=== PATIENT | female | born 1935 | race Caucasian/White ===

== ENCOUNTER 2017-04-15 13:52 | Observation (INO) ==
[2017-04-15 15:51] LABS: Basophils % 0.2 %; Eosinophils # 0.2 K/mcL (0.0-0.6); Eosinophils % 2.6 %; Hematocrit 40.1 % (35.3-44.9); Immature Granulocytes % 0.5 % (0-4); Lymphocytes % 31.9 %; Mean Corpuscular HGB Conc 32.4 g/dL (31.6-35.5); Mean Corpuscular Hemoglobin 26.7 pg (28.0-33.3); Mean Corpuscular Volume 82.3 fL (83.0-100.0); Mean Platelet Volume 8.5 fL (9.4-12.4); Monocytes # 0.6 K/mcL (0.0-1.3); Monocytes % 10.3 %; Neutrophils # 3.3 K/mcL (1.6-8.9); Platelet Count 157 K/mcL (140-400); Red Blood Count 4.87 M/mcL (3.82-4.97); Red Cell Distribution Width 13.9 % (11.5-14.5); Segmented Neutrophils % 54.5 %
[2017-04-15] MEDS ORDERED: Nitroglycerin 0.4 MG TAB.SUBL SL PRN (15:57)
[2017-04-15] MEDS ORDERED: Aspirin 81 MG TAB.CHEW PO ONE (15:57)
--- NOTE | 2017-04-15 15:58 | Emergency Department Note ---
Disposition Clinical Impression: Unstable angina, Bradycardia Chest pain Qualifiers: Chest pain type: precordial pain Qualified Code(s): R07.2 - Precordial pain Hypertension Qualifiers: Hypertension type: unspecified Qualified Code(s): I10 - Essential (primary) hypertension Disposition: Admitted As Inpatient Condition: Fair Time of Disposition: 17:02 General Adult HPI - General Chief complaint: ED Arrhythmia/Palpitations Stated complaint: Dizzy/r shoulder pain Time Seen by Provider: 04/15/17 15:03 Source: patient Mode of arrival: ambulatory Limitations: no limitations Nursing Notes Reviewed: Yes Vital Signs Reviewed: Yes - History of Present Illness HPI Narrative: Patient's an 82-year-old female complains of chest pain, and lightheadedness times today. Patient states that she woke up fine without any issue. Shortly after waking up and actually getting out of bed she started having fluttering in her chest which she says happens intermittently followed by lightheadedness. Patient states she started having actual chest pain 3/10 but worsening pain in bilateral shoulders with radiation down both arms. Patient states she has a history of ME and it felt like her anginal equivalent. Patient is currently on clopidogrel and aspirin. Pain Scale: 2 - Related Data Home Medications Medication Instructions Recorded Confirmed Allopurinol [Zyloprim] 50 mg PO DAILY 05/02/15 04/15/17 Atenolol [Tenormin] 25 mg PO DAILY 05/02/15 04/15/17 Ferrous Sulfate 325 mg PO DAILY 05/02/15 04/15/17 Levothyroxine [Synthroid] 25 mcg PO 0630 05/02/15 04/15/17 Amlodipine Besylate 10 mg PO DAILY 04/15/17 04/15/17 Atorvastatin [Lipitor] 40 mg PO HS 04/15/17 04/15/17 Clopidogrel [Plavix] 75 mg PO DAILY 04/15/17 04/15/17 Ergocalciferol (VITAMIN D2) 50,000 unit PO FR 04/15/17 04/15/17 [Vitamin D2] Metformin HCl [Metformin HCl ER] 1,000 mg PO BID 04/15/17 04/15/17 Omeprazole Magnesium [Prilosec Otc] 20 mg PO DAILY 04/15/17 04/15/17 Allergies Allergy/AdvReac Type Severity Reaction Status Date / Time lisinopril AdvReac Swelling Verified 04/15/17 16:17 of Lip/Tongue/Throat Review of Systems: Patient denies fevers, chills, nausea, vomiting, diarrhea. Patient is to chronic shortness of breath patient denies room spinning but admits to intermittent vision blurriness All systems ED: reviewed and negative except as stated. Review of Systems: As Per HPI Constitutional: Denies: fever ENT ED: Denies: congestion Cardiovascular: Reports: chest pain, palpitations Gastrointestinal: Denies: abdominal pain, nausea, vomiting, diarrhea Genitourinary: Denies: urgency, dysuria Musculoskeletal: Denies: back pain Neurological: Denies: headache Endocrine: Denies: fatigue Past Medical History - Past Medical History Attestation: Yes The following information was validated with the patient. Medical history: Reports: CVA, diabetes, hyperlipidemia, myocardial infarction Psychiatric history: Reports: no psych history - Social History Smoking Status: Former smoker Smokeless Tobacco Status: No Alcohol use: Reports: none, rarely Drug use: Reports: none Physical Exam Vital Signs Temperature 97.4 F L 04/15/17 13:59 Pulse Rate 56 04/15/17 13:59 Respiratory Rate 20 04/15/17 13:59 Blood Pressure 180/59 04/15/17 13:59 O2 Sat by Pulse Oximetry 98 04/15/17 13:59 Temperature 97.4 F L 04/15/17 13:59 Pulse Rate 56 04/15/17 13:59 Respiratory Rate 20 04/15/17 13:59 Blood Pressure 180/59 04/15/17 13:59 O2 Sat by Pulse Oximetry 98 04/15/17 13:59 Oxygen Delivery Oxygen Delivery Room Air Patient's age 82-year-old female who is alert and oriented 3 and in no acute distress at this time. Patient's vitals showed that she is hypertensive at 180/ 59 and bradycardiac with a sinus bradycardia on EKG at a rate of 54 bpm. Patient has no conversational dyspnea. No focal neurologic deficits, no pronator drift, no weakness. Patient is 5/5 muscle strength upper and lower extremities. Patient has no dysdiadochokinesis. Patient able to perform maneuvers across midline by taking her right thumb placement on her left ear while eyes are closed and tongue protrusion simultaneously. Patient can also repeat exactions with the left arm. - General Limitations: no limitations General appearance: alert - Head Head exam: atraumatic, normocephalic, normal inspection - Eye Eye exam: Present: normal appearance, PERRL, EOMI - ENT ENT exam: normal exam, normal oropharynx, mucous membranes moist - Neck Neck exam: Present: normal inspection, full ROM, trachea midline - Chest Chest inspection: Present: normal inspection, symmetric chest wall rise - Respiratory Respiratory exam: Present: normal lung sounds bilaterally. Absent: respiratory distress, wheezes - Cardiovascular Cardiovascular exam: Present: bradycardia, irregular rhythm (Irregular rhythm auscultated on exam) - Abdominal Exam Abdominal exam: Present: soft, Non-Tender. Absent: tenderness, distention, guarding, rebound, rigidity - Extremities Exam Extremities exam: Present: normal inspection, full ROM, normal capillary refill. Absent: tenderness, pedal edema, joint swelling, calf tenderness - Back Exam Back exam: Present: normal inspection, full ROM, CVA tenderness (L). Absent: tenderness, CVA tenderness (R) - Neurological Exam Neurological exam: Present: alert, oriented X3 - Psychiatric Psychiatric exam: Present: normal affect, normal mood - Skin Skin exam: Present: warm, dry, intact, normal color. Absent: rash, cyanosis, diaphoresis, erythema, pallor Course Vital Signs Temperature 97.4 F L 04/15/17 13:59 Pulse Rate 56 04/15/17 13:59 Respiratory Rate 20 04/15/17 13:59 Blood Pressure 180/59 04/15/17 13:59 O2 Sat by Pulse Oximetry 98 04/15/17 13:59 Temperature 98.2 F 04/16/17 15:23 Pulse Rate 58 04/16/17 15:23 Respiratory Rate 18 04/16/17 15:23 Blood Pressure 168/58 04/16/17 15:23 O2 Sat by Pulse Oximetry 96 04/16/17 15:23 Oxygen Delivery Oxygen Delivery Room Air Medical Decision Making - [facility] Narrative Medical decision making narrative: Patient presented with symptoms of chest pain of her anginal equivalent times a day. The symptoms include chest pain with bilateral shoulder pain. Patient is concerning for ACS/ME. Also in differential PE, TIA secondary to the patient's previous history of TIAs. Patient also mentioned that she has had previous issues with her blood pressure medication causing lightheadedness and dizziness. Patient currently bradycardic and her symptoms may be medication driven as well. Patient's chest pain symptoms resolved before her administration of nitroglycerin. On reexamination patient's chest pain came back as given one dose of nitroglycerin. This resolved patient's chest pain. Patient is currently bradycardic but hypertensive. Patient's heart rates maintaining between 40s and 50s. Of Note, the family is concerned for sacral pressure ulcer that she had in the past that was very large and request that she be rotated as much as possible. Debra Pola COMPUTATIONAL MATHEMATICIAN as except the patient for admission at 1726 hrs. - Medical Records Medical records reviewed: Yes I reviewed the patient's medical records. - Lab Data Lab results reviewed: Yes I reviewed the patient's lab results. Lab results narrative: Short CBC 04/16/17 04/15/17 Range/Units 01:39 15:44 WBC 6.0 6.1 (4.3-11.1) K/mcL Hgb 11.4 L D 13.0 (11.5-15.4) g/dL Hct 34.7 L 40.1 (35.3-44.9) % Plt Count 141 157 (140-400) K/mcL Neutrophils # 3.3 (1.6-8.9) K/mcL BMP 04/16/17 04/15/17 Range/Units 01:39 15:44 Sodium 138 138 (136-145) mEq/L Potassium 4.5 4.4 (3.5-4.5) mEq/L Chloride 107 104 (98-109) mEq/L Carbon Dioxide 26 25 (19-29) mEq/L BUN 19 21 H (7-20) mg/dL Creatinine 1.16 H 1.12 H (0.57-1.11) mg/dL Glucose 189 H 137 H (70-99) mg/dL Calcium 9.1 9.7 (8.6-10.8) mg/dL Cardiac Enzymes 04/16/17 04/15/17 04/15/17 Range/Units 01:39 19:58 15:44 Troponin I 0.01 0.01 0.01 (0-0.03) ng/mL Liver Function 04/16/17 Range/Units 01:39 Total Bilirubin 0.3 (0.2-1.2) mg/dL AST 9 (5-34) Units/L ALT 7 (0-55) Units/L Alkaline Phosphatase 118 (38-126) Units/L Albumin 3.4 L (3.5-5.0) g/dL Urine 04/16/17 Range/Units 01:47 Urine Color Yellow (Yellow) Urine Clarity Clear (Clear) Urine pH 6.0 (5.0-8.0) pH Units Ur Specific [place] 1.015 (1.010-1.025) Urine Protein 100 H (Neg-Trace) mg/dL Urine Glucose (UA) Normal (Normal) mg/dL Result diagrams: 04/16/17 01:39 04/16/17 01:39 Lab Results 04/15/17 04/15/17 04/15/17 Range/Units 15:44 15:44 15:44 WBC 6.1 (4.3-11.1) K/mcL RBC 4.87 (3.82-4.97) M/mcL Hgb 13.0 (11.5-15.4) g/dL Hct 40.1 (35.3-44.9) % MCV 82.3 L (83.0-100.0) fL MCH 26.7 L (28.0-33.3) pg MCHC 32.4 (31.6-35.5) g/dL RDW 13.9 (11.5-14.5) % Plt Count 157 (140-400) K/mcL MPV 8.5 L (9.4-12.4) fL Immature Gran % 0.5 (0-4) % Seg Neutrophils % 54.5 % Lymphocytes % 31.9 % Monocytes % 10.3 % Eosinophils % 2.6 % Basophils % 0.2 % Neutrophils # 3.3 (1.6-8.9) K/mcL Lymphocytes # 2.0 (0.6-4.6) K/mcL Monocytes # 0.6 (0.0-1.3) K/mcL Eosinophils # 0.2 (0.0-0.6) K/mcL Basophils # 0.0 (0.0-0.2) K/mcL Sodium 138 (136-145) mEq/L Potassium 4.4 (3.5-4.5) mEq/L Chloride 104 (98-109) mEq/L Carbon Dioxide 25 (19-29) mEq/L BUN 21 H (7-20) mg/dL Creatinine 1.12 H (0.57-1.11) mg/dL Est GFR ( Amer) 56 L (> 60) Est GFR (Non-Af Amer) 47 L (> 60) BUN/Creatinine Ratio 19 (6-26) Glucose 137 H (70-99) mg/dL Calculated Osmolality 291 (280-300) Calcium 9.7 (8.6-10.8) mg/dL Troponin I 0.01 (0-0.03) ng/mL B-Natriuretic Peptide (0-100) pg/mL 04/15/17 Range/Units 15:46 WBC (4.3-11.1) K/mcL RBC (3.82-4.97) M/mcL Hgb (11.5-15.4) g/dL Hct (35.3-44.9) % MCV (83.0-100.0) fL MCH (28.0-33.3) pg MCHC (31.6-35.5) g/dL RDW (11.5-14.5) % Plt Count (140-400) K/mcL MPV (9.4-12.4) fL Immature Gran % (0-4) % Seg Neutrophils % % Lymphocytes % % Monocytes % % Eosinophils % % Basophils % % Neutrophils # (1.6-8.9) K/mcL Lymphocytes # (0.6-4.6) K/mcL Monocytes # (0.0-1.3) K/mcL Eosinophils # (0.0-0.6) K/mcL Basophils # (0.0-0.2) K/mcL Sodium (136-145) mEq/L Potassium (3.5-4.5) mEq/L Chloride (98-109) mEq/L Carbon Dioxide (19-29) mEq/L BUN (7-20) mg/dL Creatinine (0.57-1.11) mg/dL Est GFR ( Amer) (> 60) Est GFR (Non-Af Amer) (> 60) BUN/Creatinine Ratio (6-26) Glucose (70-99) mg/dL Calculated Osmolality (280-300) Calcium (8.6-10.8) mg/dL Troponin I (0-0.03) ng/mL B-Natriuretic Peptide 280 H (0-100) pg/mL - Radiology Data Radiology results reviewed: Yes I reviewed the patient's radiology results. Chest X-Ray 04/15/17 14:03 IMPRESSION: No acute abnormality. D/ / 04/15/2017 14:43:46 Jaime Ross MD / rosa Interpreting Provider: Jaime Ross MD Head CT 04/15/17 15:44 IMPRESSION: No acute intracranial abnormality. Diffuse atrophic changes with findings suggesting chronic microvascular ischemia D/ / Erasmo Carlson MD / Erasmo Carlson MD Interpreting Provider: Erasmo Carlson MD - EKG Data EKG #1 EKG attestation: Yes I reviewed and interpreted this EKG. EKG shows normal: sinus rhythm Rate: bradycardia When compared to previous EKG there are: no significant changes Interpretation: no acute changes Attestation Statement - Attestation Attestation: I examined this patient and my medical decision-making was reviewed with the Resident Physician, Dr. Toscano. I agree with the documented findings, disposition and treatment plan as described except to the extent set forth below. Pt is an 82 yo wf, hx ME, who presents to the ER with c/o CP and b/l shoulder pain, similar to her prior ME. Pt also c/o "fluttering" in her chest, and lightheadeness with standing. Pt is bradycardic and HTN on arrival, with 3/10 CP. I agree with the PE findings as documented. EKG shows sinus bradycardia, no ischemia. Pt received ASA, nitro, which relieved her pain. PT remained bradycardic, is on b-viraj. Labs wnl, includ trop. CXR clear. Pt agree to admission for unstable angina, symptomatic bradycardia. Accepted by hosp.
[2017-04-15] MEDS ORDERED: 0.9 % Sodium Chloride 1,000 ML IVC SCH ×2 (16:00→18:30)
[2017-04-15 16:03] LABS: Calcium 9.7 mg/dL (8.6-10.8); Potassium 4.4 mEq/L (3.5-4.5)
[2017-04-15] MEDS ORDERED: Nitroglycerin 1 INCH/GM PACKET TP ONE (17:21)
--- NOTE | 2017-04-15 18:06 | Internal Med History&Physical ---
<Zina Tiwari Stevo - Last Filed: 04/21/17 07:35> Date of Encounter: 04/21/17 Time of Encounter: 18:09 Assessment and Plan (1) CAD (coronary artery disease) Status: Acute Wendy Dias is a 82 y/o female with PMH CAD, HTN, diabetes, hypothyroidism and CKD who presented to [facility] on 04/15/2017 completed chest pain. She was placed in observation status for ACS rule out. 1. CAD: with hx stents. Follows with cardiology in [place]. Presented with chest pain that radiated to bilateral shoulders. Nitroglycerin given in ED with relief and chest pain. Last stress test approximate 4 years ago per patient. Initial troponin negative, EKG without acute ST changes. Patient refusing ASA as it causes upset stomach. Continue home Plavix, statin. Cycle troponins. Check echo. Nothing by mouth for chest test in the morning. Consult cardiology if needed. 2. HTN: per hx. BP elevated in ED. Patient has not taken home BP medications. Resume home BP medications. Monitor BP and titrate PRN. 3. CKD: per hx. follows with Dr. Harris. Cr 1.12 which is consistent with baseline. Last echo 2015 with normal EF and no evidence of systolic dysfunction. Gentle IV hydration overnight she will be nothing by mouth. Monitor repeat renal function. 4. Diabetes: per hx. Control unknown. Holding home oral hypoglycemics. SSI. Monitor blood sugar and titrate PRN. Hgb A1c pending 5. Hypothyroidism: per hx. Cont home thyroxine. TSH pending 6. DVT prophylaxis: Heparin Qualifiers: Qualified Code(s): I25.10 - Atherosclerotic heart disease of [place] coronary artery without angina pectoris (2) Hypothyroidism Status: Acute Qualifiers: Hypothyroidism type: acquired Qualified Code(s): E03.9 - Hypothyroidism, unspecified (3) CKD (chronic kidney disease) Status: Acute Qualifiers: Chronic kidney disease stage: unspecified stage Qualified Code(s): N18.9 - Chronic kidney disease, unspecified (4) Hypertension Status: Acute Qualifiers: Hypertension type: essential hypertension Qualified Code(s): I10 - Essential (primary) hypertension (5) DVT prophylaxis Status: Acute Internal Medicine - H&P: HPI Chief complaint: chest pain and dizziness Admitted From: Home Plans for Post Hospital Care: Home History of present illness: Ms. Dias is a 82 year old female with past medical history CAD with stents, hyperthyroidism, CTD, hypertension and diabetes who presented to [facility] on 2016 complaints of chest pain and dizziness. She was placed in observation status for ACS rule out. Information obtained from chart review and patient report. Patient says when she woke this morning her heart was fluttering. She laid back down and fluttering stopped however she started having chest pain that radiated to both shoulders. Describes pain as just hurts. Nothing made better and pain worsened at the day so she came to the ER. Denies chest pain on my exam, no shortness of breath. Past Med Surg Social Fam HX - Past Medical History Medical history: CVA, diabetes, hyperlipidemia, myocardial infarction Psychiatric history: no psych history - Past Surgical History Surgical History: angioplasty/stent - Social History Smoking Status: Former smoker Smokeless Tobacco Status: No Alcohol use: none, rarely Drug use: none - Family History Father Living Status: Cause of : Heart attack Hx Family Cardiac Disorders: Yes (open heart, stroke) Mother Living Status: Hx Family Cardiac Disorders: Yes (heart attack) - Additional Family History Additional family history: Reviewed and non-contributory Internal Medicine - H&P: Meds Allopurinol [Zyloprim] 50 mg PO DAILY 05/02/15 [History] Atenolol [Tenormin] 25 mg PO DAILY 05/02/15 [History] Ferrous Sulfate 325 mg PO DAILY 05/02/15 [History] Levothyroxine [Synthroid] 25 mcg PO 0630 05/02/15 [History] Amlodipine Besylate 10 mg PO DAILY 04/15/17 [History] Atorvastatin [Lipitor] 40 mg PO HS 04/15/17 [History] Clopidogrel [Plavix] 75 mg PO DAILY 04/15/17 [History] Ergocalciferol (VITAMIN D2) [Vitamin D2] 50,000 unit PO FR 04/15/17 [History] Metformin HCl [Metformin HCl ER] 1,000 mg PO BID 04/15/17 [History] Omeprazole Magnesium [Prilosec Otc] 20 mg PO DAILY 04/15/17 [History] 3 Allergy/AdvReac Type Severity Reaction Status Date / Time lisinopril AdvReac Swelling Verified 04/15/17 16:17 of Lip/Tongue/Throat All Systems PM: A 10-system review of systems was performed and is negative for pertinent findings except as documented above in the HPI. - Constitutional Constitutional: no chills, no fever(s), no night sweats - EENT Eyes: no change in vision, no discharge, no pain, no photophobia Ears: no ear discharge, no ear pain, no tinnitus Nose, mouth and throat: no dysphagia, no nasal discharge, no neck pain, no sore throat - Cardiovascular Cardiovascular ROS IM: chest pain, no diaphoresis, no dyspnea, no lightheadedness, no palpitations, no syncope - Respiratory Respiratory: no cough, no dyspnea, no wheezing, no excessive phlegm production - Gastrointestinal Gastrointestinal: no abdominal pain, no diarrhea, no hematemesis, no hematochezia, no melena, no nausea, no vomiting - Genitourinary Genitourinary: no change in urinary stream, no dysuria, no flank pain, no hematuria - Musculoskeletal Musculoskeletal ROS IM: no numbness, no tingling - Integumentary Integumentary IM: no rash, no unusual bruising - Neurological Neurological ROS: no confusion, no convulsions, no focal weakness, no numbness, no tingling, no tremor(s) - Hematologic/Lymphatic Hematologic/Lymphatic: no easy bruising - Constitutional Vitals: Temp Pulse Resp BP Pulse Ox 97.4 F L 48 18 162/66 98 04/15/17 13:59 04/15/17 17:02 04/15/17 17:02 04/15/17 17:02 04/15/17 17:02 General appearance: Present: A&O X 3, no acute distress, answers questions appropriately - Head Head exam: Present: atraumatic, normocephalic - Eye Eye exam: Present: PERRL, conjuntiva pink, sclera anicteric Pupils: Present: PERRL - Neck Neck exam general surgery: Present: supple, trachea midline. Absent: lymphadenopathy - Respiratory Respiratory exam: Present: CTAB. Absent: accessory muscle use, rales, rhonchi, wheezes - Cardiovascular Cardiovascular exam: Present: RRR, +S1, +S2. Absent: diastolic murmur, gallop, rubs, systolic murmur - GI/Abdominal GI/Abdominal exam: Present: normal bowel sounds, soft, no peritoneal signs. Absent: distended, tenderness - Extremities Exam Extremities exam: Present: warm, radial pulses palpable and symmetrical. Absent : calf tenderness, cyanotic, pedal edema - Neurological Exam Neurological exam: Present: CN II-XII intact, oriented X3, no focal deficits. Absent: pronater drift, facial droop, speech deficit - Skin Skin exam: Present: dry, intact Internal Med - H&P Results - Labs CBC & Chem 7: 04/16/17 01:39 04/16/17 01:39 <Chandler Barnett - Last Filed: 04/21/17 09:34> Date of Encounter: 04/15/17 Internal Medicine - H&P: HPI History of present illness: Ms. Dias is a 82 year old female All Systems PM: A 10-system review of systems was performed and is negative for pertinent findings except as documented above in the HPI. - Constitutional Vitals: Temp Pulse Resp BP Pulse Ox 98.2 F 58 18 168/58 96 04/16/17 15:23 04/16/17 15:23 04/16/17 15:23 04/16/17 15:23 04/16/17 15:23 Internal Med - H&P Results - Labs CBC & Chem 7: 04/16/17 01:39 04/16/17 01:39 - Impressions ITS Impressions Echocardiogram 04/15/17 18:36 Impressions: Sinus bradycardia. Heart rate was mainly in the upper 40's to low 50's during this study. Normal LV systolic function, LVEF 70%. Moderate left ventricular diastolic dysfunction. Normal right ventricular size and function. Moderately dilated left atrium. No significant valvular dysfunction. No evidence of pulmonary hypertension. Left Ventricular Wall Motion: Rest Echo Findings All wall segments showed normal motion. Findings: Study Quality * Technically adequate exam. ECG Findings * Sinus bradycardia. Heart rate was mainly in the upper 40's to low 50's during this study. Left Ventricle * Normal LV systolic function, LVEF 70%. * Normal LV chamber size and wall thickness. * Moderate left ventricular diastolic dysfunction. Right Ventricle * Normal right ventricular size and function. Left Atrium * Moderately dilated left atrium. Right Atrium * Normal right atrial size. Aorta * Normally sized aortic root. Pericardium * There is no pericardial effusion present. IVC * The IVC is not dilated. Aortic Valve * Aortic valve not well visualized. Appears trileaflet with mild-moderate sclerosis. * No aortic stenosis. * No aortic regurgitation. Mitral Valve * Mild mitral annular calcification * No mitral stenosis. * Trace mitral regurgitation. Tricuspid Valve * Normal tricuspid valve structure. * No tricuspid stenosis. * Trace tricuspid regurgitation. * No evidence of pulmonary hypertension. Pulmonic Valve * Pulmonic valve not well visualized. * No pulmonic stenosis. * No pulmonic regurgitation. - Attending Attestation Date of service 04/15/2017. I independently obtained history and examined this patient and my medical decision-making was reviewed with the nurse practitioner. I agree with the documented findings, disposition and treatment plan as described. My findings are summarized below: Patient presented to the hospital with chest pain. On exam she is in no acute distress. Heart is regular. Lungs are clear. Troponin is negative. Plan: Observation. Heart monitoring. Trend troponin. Stress test in the morning. Chandler Barnett MD
[2017-04-15] MEDS ORDERED: Naloxone 0.4 MG/ML INJ IVP PRN (18:23)
[2017-04-15] MEDS ORDERED: *HR* Dextrose 50 % in Water (Syg) 50 ML SYRINGE IVP PRN (18:25)
[2017-04-15] MEDS ORDERED: Dextrose Gel 15 GM PO PRN ×2 (18:25)
[2017-04-15] MEDS ORDERED: D5% in Water 1,000 ML IVC PRN (18:25)
[2017-04-15 20:17] LABS: Hemoglobin A1C 6.2 %
[2017-04-15] MEDS: amLODIPine 5 MG TABLET PO SCH (20:33)
[2017-04-15] MEDS ORDERED: Insulin LISPRO 300 UNITS/3 ML VIAL SQ SCH (21:00)
[2017-04-16 01:52] LABS: Hematocrit 34.7 % (35.3-44.9); Mean Corpuscular HGB Conc 32.9 g/dL (31.6-35.5); Mean Corpuscular Hemoglobin 27.1 pg (28.0-33.3); Mean Corpuscular Volume 82.4 fL (83.0-100.0); Mean Platelet Volume 8.4 fL (9.4-12.4); Platelet Count 141 K/mcL (140-400); Red Blood Count 4.21 M/mcL (3.82-4.97); Red Cell Distribution Width 13.8 % (11.5-14.5)
[2017-04-16 01:56] LABS: Hemoglobin 11.4 g/dL (11.5-15.4)
[2017-04-16 01:57] LABS: Bilirubin,Urine Negative (Negative); Blood,Urine Negative (Negative); Clarity,Urine Clear (Clear); Color,Urine Yellow (Yellow); Glucose,Urine (UA) Normal (Normal); Ketones,Urine Negative (Negative); Leukocyte Esterase,Urine Small (Negative); Nitrite,Urine Negative (Negative); Protein,Urine 100 mg/dL (Neg-Trace); Specific Gravity,Urine 1.015 (1.010-1.025); Urobilinogen,Urine Normal (Normal)
[2017-04-16 02:01] LABS: Bacteria,Urine None Seen per hpf (None-Few); Hyaline Casts,Urine None Seen per lpf (None-Few); RBC,Urine 0-3 per hpf (0-3); Squamous Epithelial Cell,Urine Many per lpf (None-Few); WBC,Urine 15-30 per hpf (0-3)
[2017-04-16 02:09] LABS: Albumin 3.4 g/dL (3.5-5.0); Bilirubin,Total 0.3 mg/dL (0.2-1.2); Calcium 9.1 mg/dL (8.6-10.8); Chol/HDL Ratio 4.1 (0-4.9); Globulin 3.4 g/dL (2.4-3.5); Potassium 4.5 mEq/L (3.5-4.5); Total Protein 6.8 g/dL (6.0-8.3)
[2017-04-16] MEDS ORDERED: Regadenoson 0.4 MG/5 ML SYRINGE IVP ONE (06:08)
[2017-04-16] MEDS ORDERED: Levothyroxine 25 MCG TABLET PO SCH (06:30)
[2017-04-16] MEDS: Insulin LISPRO 300 UNITS/3 ML VIAL SQ SCH ×2 (10:36→12:56)
[2017-04-16] MEDS: amLODIPine 5 MG TABLET PO SCH (11:51)
--- NOTE | 2017-04-16 15:28 | Electrocardiograph Report ---
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
[2017-04-16 15:29] VITALS: BP 168/58
--- NOTE | 2017-04-16 15:49 | Discharge Summary ---
Date of Encounter: 04/16/17 Time of Encounter: 11:00 - Discharge Diagnosis (1) Chest pain Priority: Primary Status: Acute Qualifiers: Chest pain type: precordial pain Qualified Code(s): R07.2 - Precordial pain - Discharge Medications Home Medications: Allopurinol [Zyloprim] 50 mg PO DAILY 05/02/15 [History] Atenolol [Tenormin] 25 mg PO DAILY 05/02/15 [History] Ferrous Sulfate 325 mg PO DAILY 05/02/15 [History] Levothyroxine [Synthroid] 25 mcg PO 0630 05/02/15 [History] Amlodipine Besylate 10 mg PO DAILY 04/15/17 [History] Atorvastatin [Lipitor] 40 mg PO HS 04/15/17 [History] Clopidogrel [Plavix] 75 mg PO DAILY 04/15/17 [History] Ergocalciferol (VITAMIN D2) [Vitamin D2] 50,000 unit PO FR 04/15/17 [History] Metformin HCl [Metformin HCl ER] 1,000 mg PO BID 04/15/17 [History] Omeprazole Magnesium [Prilosec Otc] 20 mg PO DAILY 04/15/17 [History] Allergies/Adverse Reactions: 3 Allergy/AdvReac Type Severity Reaction Status Date / Time lisinopril AdvReac Swelling Verified 04/15/17 16:17 of Lip/Tongue/Throat Procedures/tests Complete & Pending: Procedures Performed prior 72 hours Category Date Time Status NM jorden perf SPECT multi [NM] Routine Exams 04/15/17 18:37 Taken EV echocardiogram Routine Y 04/15/17 18:36 Completed SP pharm nuclear stress Routine Y 04/16/17 09:00 Completed Date of admission: 04/15/17 17:43 Primary care physician: Anna Granados - Patient Status Disposition: Home, Self-Care Condition: Fair - Discharge Instructions Follow Up With: Anna Osorio MD [Primary Care Provider] - Hospital course: Patient is an 82 year old female with past medical history significant for CAD with stents, hyperthyroidism, CTD, hypertension and diabetes who presented to [facility] on 04/15/2017 complaints of chest pain and dizziness. Patient reported waking up the morning of admission with her heart fluttering. She laid back down and fluttering stopped however she started having chest pain that radiated to both shoulders without any relieving or provoking factors. Patient was admitted to the medical floor for ACS rule out. During her hospital stay, chest x-ray showed normal lung volumes with no acute consolidation or interstitial edema. Cardiac biomarkers were negative. Echocardiogram showed bradycardia with normal LV systolic function with moderate left ventricular diastolic dysfunction without any valvular dysfunction ; all wall segments show normal motion of the left ventricle. Nuclear stress test was negative for ischemia or infarct. 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 - Time Spent with Patient Total time spent providing and/or coordinating discharge services: Less than 30 minutes - Constitutional Vitals: Temp Pulse Resp BP Pulse Ox 98.2 F 58 18 168/58 96 04/16/17 15:23 04/16/17 15:23 04/16/17 15:23 04/16/17 15:23 04/16/17 15:23 General appearance: Present: A&O X 3, no acute distress, answers questions appropriately - Cardiovascular Cardiovascular exam: Present: RRR, +S1, +S2. Absent: diastolic murmur, gallop, rubs, systolic murmur - Expanded Lower Extremities Exam Lower Leg exam: Absent: swelling
== END 2017-04-16 17:00 | disposition home or self-care (01) ==
LOC: 3BNU 13:52 → EMEROO 13:52 → SUATTDRO 17:43 → 3BNU 20:05
PROVIDERS: ADMIT Registered Nurse; ATTEND Hospitalist

== ENCOUNTER 2021-08-22 12:47 | Inpatient (IN) ==
[2021-08-22 16:12] LABS: Hematocrit 43.8 % (35.3-44.9); Hemoglobin 14.1 g/dL (11.5-15.4); Mean Corpuscular HGB Conc 32.2 g/dL (31.6-35.5); Mean Corpuscular Hemoglobin 27.8 pg (28.0-33.3); Mean Corpuscular Volume 86.4 fL (83.0-100.0); Mean Platelet Volume 8.6 fL (9.4-12.4); Platelet Count 151 K/mcL (140-400); Red Blood Count 5.07 M/mcL (3.82-4.97); Red Cell Distribution Width 14.1 % (11.5-14.5); White Blood Count 11.7 K/mcL (4.3-11.1)
[2021-08-22 16:36] LABS: Calcium 10.1 mg/dL (8.6-10.3); Potassium 3.9 mEq/L (3.5-5.1)
[2021-08-22 16:48] LABS: Lymphocytes # 0.7 K/mcL (0.6-4.6); Monocytes # 1.2 K/mcL (0.0-1.3); Neutrophils # 9.8 K/mcL (1.6-8.9)
[2021-08-22 16:49] LABS: Platelet Estimate Normal (Normal)
[2021-08-22] MEDS ORDERED: Clindamycin 600 MG/50 ML 600 MG/50 ML IV.SOLN IVPB STA (18:15)
[2021-08-22] MEDS ORDERED: Ondansetron ODT 4 MG TAB.RAPDIS SL PRN (19:42)
[2021-08-22] MEDS ORDERED: Naloxone 0.4 MG/ML INJ IVP PRN (19:42)
[2021-08-22] MEDS ORDERED: Melatonin 3 MG TABLET PO PRN (19:42)
[2021-08-22] MEDS: hydrALAZINE 25 MG TABLET PO SCH (22:38)
[2021-08-23 03:43] LABS: Basophils % 0.1 %; Eosinophils % 0.2 %; Hematocrit 39.1 % (35.3-44.9); Hemoglobin 12.7 g/dL (11.5-15.4); Immature Granulocytes % 0.3 % (0-4); Lymphocytes # 2.3 K/mcL (0.6-4.6); Lymphocytes % 21.6 %; Mean Corpuscular HGB Conc 32.5 g/dL (31.6-35.5); Mean Corpuscular Volume 86.1 fL (83.0-100.0); Mean Platelet Volume 8.6 fL (9.4-12.4); Monocytes # 1.8 K/mcL (0.0-1.3); Monocytes % 17.3 %; Neutrophils # 6.3 K/mcL (1.6-8.9); Platelet Count 141 K/mcL (140-400); Red Blood Count 4.54 M/mcL (3.82-4.97); Red Cell Distribution Width 14.2 % (11.5-14.5); Segmented Neutrophils % 60.5 %; White Blood Count 10.4 K/mcL (4.3-11.1)
[2021-08-23 04:03] LABS: Calcium 9.5 mg/dL (8.6-10.3); Potassium 3.8 mEq/L (3.5-5.1)
[2021-08-23] MEDS: Levothyroxine 25 MCG TABLET PO SCH (06:03)
[2021-08-23] MEDS ORDERED: Furosemide 20 MG TABLET PO SCH (09:00)
[2021-08-23] MEDS: allopurinoL 100 MG TABLET PO SCH (09:25)
[2021-08-23] MEDS: Loratadine 10 MG TABLET PO SCH (09:25)
[2021-08-23] MEDS: Ascorbic Acid 500 MG TABLET PO SCH (09:25)
[2021-08-23] MEDS: amLODIPine 5 MG TABLET PO SCH (09:26)
[2021-08-23] MEDS: hydrALAZINE 25 MG TABLET PO SCH ×2 (09:26→20:46)
[2021-08-23] MEDS: cefTRIAXone 1,000 MG in 0.9 % Sodium Chloride 10 ML IVP SCH (09:27)
[2021-08-23] MEDS: Budesonide/Formoterol 160/4.5 1 PUFF INH IH SCH (10:47)
[2021-08-23] MEDS: Tiotropium 10 INH DOSE IH SCH (10:49)
[2021-08-23] MEDS: Acetaminophen 325 MG TABLET PO PRN (11:17)
[2021-08-23] MEDS: *HR* Heparin 5,000 UNIT/ML VIAL SQ SCH ×2 (14:47→20:46)
[2021-08-23] MEDS: *HR* HYDROcodone/Acet 5/325 mg TABLET PO PRN (16:29)
[2021-08-24 05:07] LABS: Basophils % 0.1 %; Eosinophils % 0.3 %; Hematocrit 36.5 % (35.3-44.9); Hemoglobin 11.8 g/dL (11.5-15.4); Immature Granulocytes % 10.3 % (0-4); Lymphocytes % 26.2 %; Mean Corpuscular HGB Conc 32.3 g/dL (31.6-35.5); Mean Corpuscular Hemoglobin 28.2 pg (28.0-33.3); Mean Corpuscular Volume 87.3 fL (83.0-100.0); Mean Platelet Volume 8.9 fL (9.4-12.4); Monocytes # 1.1 K/mcL (0.0-1.3); Monocytes % 14.8 %; Neutrophils # 3.7 K/mcL (1.6-8.9); Platelet Count 146 K/mcL (140-400); Red Blood Count 4.18 M/mcL (3.82-4.97); Red Cell Distribution Width 13.9 % (11.5-14.5); Segmented Neutrophils % 48.3 %; White Blood Count 7.7 K/mcL (4.3-11.1)
[2021-08-24 05:22] LABS: Potassium 3.9 mEq/L (3.5-5.1)
[2021-08-24] MEDS: *HR* Heparin 5,000 UNIT/ML VIAL SQ SCH ×3 (06:07→20:53)
[2021-08-24] MEDS: Levothyroxine 25 MCG TABLET PO SCH (06:08)
[2021-08-24] MEDS: hydrALAZINE 25 MG TABLET PO SCH ×2 (07:52→20:53)
[2021-08-24] MEDS: *HR* HYDROcodone/Acet 5/325 mg TABLET PO PRN ×2 (07:52→17:24)
[2021-08-24] MEDS: Ascorbic Acid 500 MG TABLET PO SCH (07:52)
[2021-08-24] MEDS: allopurinoL 100 MG TABLET PO SCH (07:53)
[2021-08-24] MEDS: Loratadine 10 MG TABLET PO SCH (07:54)
[2021-08-24] MEDS: amLODIPine 5 MG TABLET PO SCH (07:54)
[2021-08-24] MEDS: cefTRIAXone 1,000 MG in 0.9 % Sodium Chloride 10 ML IVP SCH (07:55)
[2021-08-24] MEDS ORDERED: *HR* Propofol 200 MG/20 ML VIAL IVP ONE ×2 (09:04→13:00)
[2021-08-24] MEDS ORDERED: *HR* FentaNYL (PF) 100 MCG/2 ML VIAL ONE (09:04)
[2021-08-24] MEDS ORDERED: Ondansetron 4 MG/2 ML VIAL ONE (09:06)
[2021-08-24] MEDS ORDERED: Lidocaine -MPF 2% 5 ML VIAL ONE (09:06)
[2021-08-24] MEDS: Tiotropium 10 INH DOSE IH SCH (10:05)
[2021-08-24] MEDS: Budesonide/Formoterol 160/4.5 1 PUFF INH IH SCH (10:05)
[2021-08-24] MEDS ORDERED: Acetaminophen IV 1,000 MG/100 ML BAG IVPB ONE (12:00)
[2021-08-24] MEDS ORDERED: *HR* Midazolam HCl 2 MG/2 ML VIAL ONE (12:14)
[2021-08-24] MEDS ORDERED: Lidocaine/EPI 1:100k 1% 30 ML VIAL ONE (12:16)
[2021-08-24] MEDS ORDERED: Bupivacaine/EPI 1:200k 0.25% 50 ML VIAL ONE (12:16)
[2021-08-24] MEDS: Acetaminophen 325 MG TABLET PO PRN ×2 (14:28→21:44)
[2021-08-24] MEDS: 0.9 % Sodium Chloride 1,000 ML IVC SCH (20:54)
[2021-08-25 00:35] LABS: Hematocrit 34.6 % (35.3-44.9); Hemoglobin 11.4 g/dL (11.5-15.4); Mean Corpuscular HGB Conc 32.9 g/dL (31.6-35.5); Mean Corpuscular Hemoglobin 28.9 pg (28.0-33.3); Mean Corpuscular Volume 87.6 fL (83.0-100.0); Mean Platelet Volume 8.6 fL (9.4-12.4); Platelet Count 138 K/mcL (140-400); Red Blood Count 3.95 M/mcL (3.82-4.97); Red Cell Distribution Width 13.7 % (11.5-14.5); White Blood Count 6.2 K/mcL (4.3-11.1)
[2021-08-25 00:54] LABS: Calcium 8.7 mg/dL (8.6-10.3)
[2021-08-25 00:59] LABS: Eosinophils # 0.1 K/mcL (0.0-0.6); Lymphocytes # 1.5 K/mcL (0.6-4.6); Monocytes # 0.1 K/mcL (0.0-1.3); Neutrophils # 4.5 K/mcL (1.6-8.9); Platelet Estimate Normal (Normal); Reactive Lymphocytes Present (Not Present)
[2021-08-25] MEDS: *HR* HYDROcodone/Acet 5/325 mg TABLET PO PRN ×3 (02:11→19:22)
[2021-08-25] MEDS: *HR* Heparin 5,000 UNIT/ML VIAL SQ SCH (06:10)
[2021-08-25] MEDS: Levothyroxine 25 MCG TABLET PO SCH (06:11)
[2021-08-25] MEDS: 0.9 % Sodium Chloride 1,000 ML IVC SCH (07:24)
[2021-08-25] MEDS: Tiotropium 10 INH DOSE IH SCH (08:14)
[2021-08-25] MEDS: Budesonide/Formoterol 160/4.5 1 PUFF INH IH SCH (08:15)
[2021-08-25] MEDS: Loratadine 10 MG TABLET PO SCH (09:46)
[2021-08-25] MEDS: hydrALAZINE 25 MG TABLET PO SCH ×2 (09:46→22:10)
[2021-08-25] MEDS: Ascorbic Acid 500 MG TABLET PO SCH (09:46)
[2021-08-25] MEDS: amLODIPine 5 MG TABLET PO SCH (09:47)
[2021-08-25] MEDS: cefTRIAXone 1,000 MG in 0.9 % Sodium Chloride 10 ML IVP SCH (09:47)
[2021-08-26] MEDS: *HR* HYDROcodone/Acet 5/325 mg TABLET PO PRN ×2 (04:06→19:53)
[2021-08-26 04:44] LABS: Basophils % 0.2 %; Eosinophils % 0.6 %; Hematocrit 34.1 % (35.3-44.9); Hemoglobin 10.8 g/dL (11.5-15.4); Immature Granulocytes % 6.8 % (0-4); Lymphocytes # 1.6 K/mcL (0.6-4.6); Lymphocytes % 28.9 %; Mean Corpuscular HGB Conc 31.7 g/dL (31.6-35.5); Mean Corpuscular Hemoglobin 27.6 pg (28.0-33.3); Mean Platelet Volume 8.6 fL (9.4-12.4); Monocytes # 0.7 K/mcL (0.0-1.3); Monocytes % 13.2 %; Neutrophils # 2.7 K/mcL (1.6-8.9); Platelet Count 135 K/mcL (140-400); Red Blood Count 3.92 M/mcL (3.82-4.97); Red Cell Distribution Width 13.6 % (11.5-14.5); Segmented Neutrophils % 50.3 %; White Blood Count 5.4 K/mcL (4.3-11.1)
[2021-08-26 04:50] LABS: Platelet Estimate Normal (Normal)
[2021-08-26 05:08] LABS: Calcium 8.6 mg/dL (8.6-10.3); Potassium 3.9 mEq/L (3.5-5.1)
[2021-08-26] MEDS: Levothyroxine 25 MCG TABLET PO SCH (06:16)
[2021-08-26] MEDS: Tiotropium 10 INH DOSE IH SCH (08:02)
[2021-08-26] MEDS: Budesonide/Formoterol 160/4.5 1 PUFF INH IH SCH (08:02)
[2021-08-26] MEDS: amLODIPine 5 MG TABLET PO SCH (09:24)
[2021-08-26] MEDS: Ascorbic Acid 500 MG TABLET PO SCH (09:24)
[2021-08-26] MEDS: hydrALAZINE 25 MG TABLET PO SCH ×2 (09:24→19:54)
[2021-08-26] MEDS: Loratadine 10 MG TABLET PO SCH (09:24)
[2021-08-26] MEDS: cefTRIAXone 1,000 MG in 0.9 % Sodium Chloride 10 ML IVP SCH (09:24)
[2021-08-27 02:58] VITALS: TEMP 97.7
[2021-08-27] MEDS: Levothyroxine 25 MCG TABLET PO SCH (05:25)
[2021-08-27 05:44] LABS: Basophils % 0.4 %; Eosinophils % 0.6 %; Hematocrit 34.8 % (35.3-44.9); Hemoglobin 11.5 g/dL (11.5-15.4); Immature Granulocytes % 4.3 % (0-4); Lymphocytes # 1.7 K/mcL (0.6-4.6); Mean Corpuscular Hemoglobin 28.5 pg (28.0-33.3); Mean Corpuscular Volume 86.1 fL (83.0-100.0); Mean Platelet Volume 8.8 fL (9.4-12.4); Monocytes # 0.8 K/mcL (0.0-1.3); Monocytes % 14.6 %; Neutrophils # 2.6 K/mcL (1.6-8.9); Platelet Count 160 K/mcL (140-400); Red Blood Count 4.04 M/mcL (3.82-4.97); Red Cell Distribution Width 13.6 % (11.5-14.5); Segmented Neutrophils % 48.1 %; White Blood Count 5.4 K/mcL (4.3-11.1)
[2021-08-27 06:10] LABS: Calcium 9.1 mg/dL (8.6-10.3); Potassium 3.8 mEq/L (3.5-5.1)
[2021-08-27 07:23] VITALS: BP 147/70; PULSE 65
[2021-08-27] MEDS: Tiotropium 10 INH DOSE IH SCH (07:59)
[2021-08-27] MEDS: Budesonide/Formoterol 160/4.5 1 PUFF INH IH SCH (08:00)
[2021-08-27 08:01] VITALS: O2SAT 94
[2021-08-27] MEDS: *HR* HYDROcodone/Acet 5/325 mg TABLET PO PRN (09:00)
[2021-08-27] MEDS: cefTRIAXone 1,000 MG in 0.9 % Sodium Chloride 10 ML IVP SCH (09:01)
[2021-08-27] MEDS: hydrALAZINE 25 MG TABLET PO SCH (09:01)
[2021-08-27] MEDS: Loratadine 10 MG TABLET PO SCH (09:01)
[2021-08-27] MEDS: amLODIPine 5 MG TABLET PO SCH (09:01)
[2021-08-27] MEDS: Ascorbic Acid 500 MG TABLET PO SCH (09:01)
== END 2021-08-27 15:30 | disposition home health service (06) | DRG 580 ==
LOC: 4WAOSI 12:47 → EMEROOARM 12:47 → SUATTDRO 18:26 → 4WAOSI 19:30 → SUATTDRO 08-24 14:14 → 3BNU 08-25 20:09
PROVIDERS: ADMIT Internal Medicine; ATTEND Pharmacist

== ENCOUNTER 2022-04-08 13:11 | Inpatient (IN) ==
[2022-04-08 14:01] LABS: Hematocrit 41.4 % (35.3-44.9); Mean Platelet Volume 9.4 fL (9.4-12.4)
[2022-04-08 14:03] LABS: Hemoglobin 13.8 g/dL (11.5-15.4); Mean Corpuscular HGB Conc 33.3 g/dL (31.6-35.5); Mean Corpuscular Hemoglobin 28.2 pg (28.0-33.3); Mean Corpuscular Volume 84.5 fL (83.0-100.0); Platelet Count 160 K/mcL (140-400); Red Cell Distribution Width 13.4 % (11.5-14.5); White Blood Count 11.4 K/mcL (4.3-11.1)
[2022-04-08 14:06] LABS: Eosinophils # 0.1 K/mcL (0.0-0.6)
[2022-04-08 14:30] LABS: Calcium 9.6 mg/dL (8.6-10.3); Potassium 3.5 mEq/L (3.5-5.1); Troponin I 3.87 ng/mL (< 0.04)
[2022-04-08 14:32] LABS: Basophils # 0.1 K/mcL (0.0-0.2); Lymphocytes # 1.8 K/mcL (0.6-4.6); Monocytes # 0.9 K/mcL (0.0-1.3); Neutrophils # 8.4 K/mcL (1.6-8.9); Platelet Estimate Normal (Normal); Reactive Lymphocytes Present (Not Present)
[2022-04-08] MEDS ORDERED: Aspirin 325 MG TABLET PO ONE (14:32)
[2022-04-08] MEDS ORDERED: *HR* Heparin 5,000 UNIT/ML VIAL IVP ONE (14:43)
[2022-04-08] MEDS ORDERED: Heparin 25,000UNIT/250ML 1/2NS 25,000 UNIT/250 ML IV.SOLN IVC SCH (14:45)
[2022-04-08 15:15] LABS: Hematocrit 37.9 % (35.3-44.9); Hemoglobin 12.3 g/dL (11.5-15.4); Mean Corpuscular HGB Conc 32.5 g/dL (31.6-35.5); Mean Corpuscular Hemoglobin 27.7 pg (28.0-33.3); Mean Corpuscular Volume 85.4 fL (83.0-100.0); Mean Platelet Volume 9.1 fL (9.4-12.4); Platelet Count 144 K/mcL (140-400); Red Blood Count 4.44 M/mcL (3.82-4.97); Red Cell Distribution Width 13.4 % (11.5-14.5); White Blood Count 10.6 K/mcL (4.3-11.1)
[2022-04-08] MEDS ORDERED: Heparin 1,000 UNITS/500 mL 500 ML ONE (15:19)
[2022-04-08] MEDS ORDERED: 0.9 % Sodium Chloride 1,000 ML ONE (15:19)
[2022-04-08] MEDS ORDERED: Nitroglycerin 1,000 MCG/5 ML VIAL IV ONE (15:19)
[2022-04-08] MEDS ORDERED: *HR* Heparin 10,000 UNIT/10 ML VIAL ONE (15:19)
[2022-04-08] MEDS ORDERED: Iopamidol - 370 200 ML INFUS..BTL ONE (15:19)
[2022-04-08 15:24] LABS: INR 1.5; Prothrombin Time 17.2 Seconds (9.4-12.1)
[2022-04-08] MEDS ORDERED: *HR* Midazolam HCl 2 MG/2 ML VIAL ONE (15:26)
[2022-04-08] MEDS ORDERED: *HR* FentaNYL (PF) 100 MCG/2 ML VIAL ONE (15:26)
[2022-04-08 15:27] LABS: Heparin anti-factor XA UFH 1.02 IU/mL (0.30-0.70)
[2022-04-08] MEDS: Insulin LISPRO 300 UNITS/3 ML VIAL SUBQ SCH ×2 (17:27→20:13)
[2022-04-08] MEDS ORDERED: Naloxone 0.4 MG/ML INJ IVP PRN (17:38)
[2022-04-09] MEDS ORDERED: Ondansetron 4 MG/2 ML VIAL IM ONE (02:53)
[2022-04-09] MEDS ORDERED: Ondansetron 4 MG/2 ML VIAL ONE (02:55)
[2022-04-09 03:12] LABS: Hemoglobin 13.2 g/dL (11.5-15.4); Mean Corpuscular Hemoglobin 27.8 pg (28.0-33.3); Mean Corpuscular Volume 84.2 fL (83.0-100.0); Platelet Count 148 K/mcL (140-400); Red Blood Count 4.75 M/mcL (3.82-4.97); Red Cell Distribution Width 13.4 % (11.5-14.5); White Blood Count 11.7 K/mcL (4.3-11.1)
[2022-04-09 03:24] LABS: Calcium 9.1 mg/dL (8.6-10.3); Chol/HDL Ratio 4.3 (0-4.9)
[2022-04-09 03:42] LABS: Monocytes # 0.9 K/mcL (0.0-1.3)
[2022-04-09 03:43] LABS: Eosinophils # 0.2 K/mcL (0.0-0.6); Lymphocytes # 2.1 K/mcL (0.6-4.6); Neutrophils # 8.4 K/mcL (1.6-8.9); Platelet Estimate Normal (Normal)
[2022-04-09 04:56] LABS: Estimated Average Glucose 137 mg/dl; Hemoglobin A1C 6.4 %
[2022-04-09] MEDS: Insulin LISPRO 300 UNITS/3 ML VIAL SUBQ SCH ×4 (08:56→21:19)
[2022-04-09] MEDS: Aspirin 81 MG TAB.CHEW PO SCH (09:03)
[2022-04-09] MEDS ORDERED: D5% in Water 1,000 ML IVC PRN (11:45)
[2022-04-09] MEDS ORDERED: *HR* Dextrose 50 % in Water (Syg) 50 ML SYRINGE IVP PRN (11:45)
[2022-04-09] MEDS ORDERED: Dextrose Gel 15 GM/37.5 ML TUBE PO PRN ×2 (11:45)
[2022-04-09] MEDS ORDERED: Ringers Solution, Lactated 1,000 ML ONE (15:58)
[2022-04-09] MEDS: carvediloL 6.25 MG TABLET PO SCH (17:53)
[2022-04-09] MEDS: allopurinoL 100 MG TABLET PO SCH (17:54)
[2022-04-10 04:11] LABS: Hematocrit 38.2 % (35.3-44.9); Hemoglobin 12.3 g/dL (11.5-15.4); Mean Corpuscular HGB Conc 32.2 g/dL (31.6-35.5); Mean Corpuscular Hemoglobin 27.3 pg (28.0-33.3); Mean Corpuscular Volume 84.9 fL (83.0-100.0); Mean Platelet Volume 9.2 fL (9.4-12.4); Platelet Count 150 K/mcL (140-400); Red Cell Distribution Width 13.2 % (11.5-14.5); White Blood Count 11.7 K/mcL (4.3-11.1)
[2022-04-10 04:26] LABS: Albumin 3.3 g/dL (3.5-5.7); Albumin/Globulin Ratio 1.1 (1.1-2.2); Bilirubin,Total 0.7 mg/dL (0.3-1.0); Calcium 8.9 mg/dL (8.6-10.3); Globulin 3.1 g/dL (2.4-3.5); Potassium 3.6 mEq/L (3.5-5.1); Total Protein 6.4 g/dL (6.4-8.9)
[2022-04-10 05:02] LABS: Lymphocytes # 3.3 K/mcL (0.6-4.6); Monocytes # 0.9 K/mcL (0.0-1.3); Neutrophils # 7.5 K/mcL (1.6-8.9)
[2022-04-10 05:04] LABS: Platelet Estimate Normal (Normal)
[2022-04-10] MEDS: Levothyroxine 25 MCG TABLET PO SCH (06:07)
[2022-04-10] MEDS: Cholecalciferol (D-3) 1,000 UNIT (25MCG) TABLET PO SCH (08:00)
[2022-04-10] MEDS: allopurinoL 100 MG TABLET PO SCH (08:00)
[2022-04-10] MEDS: Aspirin 81 MG TAB.CHEW PO SCH (08:00)
[2022-04-10] MEDS: Furosemide 20 MG TABLET PO SCH (08:00)
[2022-04-10] MEDS: Insulin LISPRO 300 UNITS/3 ML VIAL SUBQ SCH ×4 (08:01→20:18)
[2022-04-10] MEDS: carvediloL 6.25 MG TABLET PO SCH ×2 (08:01→16:59)
[2022-04-10] MEDS ORDERED: 0.9 % Sodium Chloride 1,000 ML IVC SCH (10:30)
[2022-04-10 15:13] LABS: Calcium 8.7 mg/dL (8.6-10.3); Potassium 3.5 mEq/L (3.5-5.1)
[2022-04-11 03:55] LABS: Basophils % 0.1 %; Eosinophils # 0.1 K/mcL (0.0-0.6); Eosinophils % 0.5 %; Hematocrit 36.4 % (35.3-44.9); Hemoglobin 11.9 g/dL (11.5-15.4); Lymphocytes # 1.5 K/mcL (0.6-4.6); Lymphocytes % 13.7 %; Mean Corpuscular HGB Conc 32.7 g/dL (31.6-35.5); Mean Corpuscular Hemoglobin 27.9 pg (28.0-33.3); Mean Corpuscular Volume 85.2 fL (83.0-100.0); Monocytes # 1.9 K/mcL (0.0-1.3); Monocytes % 16.8 %; Neutrophils # 6.7 K/mcL (1.6-8.9); Platelet Count 152 K/mcL (140-400); Red Blood Count 4.27 M/mcL (3.82-4.97); Red Cell Distribution Width 13.3 % (11.5-14.5); Segmented Neutrophils % 59.9 %; White Blood Count 11.1 K/mcL (4.3-11.1)
[2022-04-11 04:16] LABS: Calcium 8.7 mg/dL (8.6-10.3); Potassium 3.5 mEq/L (3.5-5.1)
[2022-04-11 04:30] LABS: Platelet Estimate Normal (Normal)
[2022-04-11] MEDS: Levothyroxine 25 MCG TABLET PO SCH (05:33)
[2022-04-11] MEDS: Furosemide 20 MG TABLET PO SCH (07:55)
[2022-04-11] MEDS: Aspirin 81 MG TAB.CHEW PO SCH (07:57)
[2022-04-11] MEDS: Cholecalciferol (D-3) 1,000 UNIT (25MCG) TABLET PO SCH (07:58)
[2022-04-11] MEDS: allopurinoL 100 MG TABLET PO SCH (07:58)
[2022-04-11] MEDS: carvediloL 6.25 MG TABLET PO SCH ×2 (07:58→16:41)
[2022-04-11] MEDS: Insulin LISPRO 300 UNITS/3 ML VIAL SUBQ SCH ×4 (09:44→19:25)
[2022-04-12 05:09] LABS: Basophils % 0.2 %; Eosinophils # 0.1 K/mcL (0.0-0.6); Eosinophils % 0.5 %; Hematocrit 31.7 % (35.3-44.9); Hemoglobin 10.5 g/dL (11.5-15.4); Immature Granulocytes % 8.3 % (0-4); Lymphocytes # 1.7 K/mcL (0.6-4.6); Lymphocytes % 17.1 %; Mean Corpuscular HGB Conc 33.1 g/dL (31.6-35.5); Mean Corpuscular Hemoglobin 27.9 pg (28.0-33.3); Mean Corpuscular Volume 84.1 fL (83.0-100.0); Mean Platelet Volume 9.4 fL (9.4-12.4); Monocytes # 1.6 K/mcL (0.0-1.3); Monocytes % 16.6 %; Neutrophils # 5.6 K/mcL (1.6-8.9); Platelet Count 166 K/mcL (140-400); Red Blood Count 3.77 M/mcL (3.82-4.97); Red Cell Distribution Width 13.2 % (11.5-14.5); Segmented Neutrophils % 57.3 %; White Blood Count 9.7 K/mcL (4.3-11.1)
[2022-04-12 05:11] LABS: Platelet Estimate Normal (Normal)
[2022-04-12 05:25] LABS: Calcium 8.4 mg/dL (8.6-10.3); Potassium 3.1 mEq/L (3.5-5.1)
[2022-04-12] MEDS: Levothyroxine 25 MCG TABLET PO SCH (06:04)
[2022-04-12] MEDS: carvediloL 6.25 MG TABLET PO SCH ×2 (08:08→17:50)
[2022-04-12] MEDS: Aspirin 81 MG TAB.CHEW PO SCH (08:08)
[2022-04-12] MEDS: allopurinoL 100 MG TABLET PO SCH (08:08)
[2022-04-12] MEDS: Furosemide 20 MG TABLET PO SCH (08:08)
[2022-04-12] MEDS: Cholecalciferol (D-3) 1,000 UNIT (25MCG) TABLET PO SCH (08:09)
[2022-04-12] MEDS: Insulin LISPRO 300 UNITS/3 ML VIAL SUBQ SCH ×4 (08:09→20:04)
[2022-04-13 02:49] LABS: Hematocrit 32.6 % (35.3-44.9); Hemoglobin 10.5 g/dL (11.5-15.4); Mean Corpuscular HGB Conc 32.2 g/dL (31.6-35.5); Mean Corpuscular Hemoglobin 27.3 pg (28.0-33.3); Mean Corpuscular Volume 84.7 fL (83.0-100.0); Mean Platelet Volume 9.1 fL (9.4-12.4); Platelet Count 174 K/mcL (140-400); Red Blood Count 3.85 M/mcL (3.82-4.97); Red Cell Distribution Width 13.3 % (11.5-14.5)
[2022-04-13 03:07] LABS: Lymphocytes # 1.7 K/mcL (0.6-4.6); Monocytes # 0.6 K/mcL (0.0-1.3); Neutrophils # 4.8 K/mcL (1.6-8.9); Platelet Estimate Normal (Normal)
[2022-04-13 03:10] LABS: Calcium 8.4 mg/dL (8.6-10.3); Potassium 3.5 mEq/L (3.5-5.1)
[2022-04-13] MEDS: Levothyroxine 25 MCG TABLET PO SCH (06:09)
[2022-04-13] MEDS: Insulin LISPRO 300 UNITS/3 ML VIAL SUBQ SCH ×4 (08:10→19:49)
[2022-04-13] MEDS: allopurinoL 100 MG TABLET PO SCH (08:19)
[2022-04-13] MEDS: Cholecalciferol (D-3) 1,000 UNIT (25MCG) TABLET PO SCH (08:19)
[2022-04-13] MEDS: Aspirin 81 MG TAB.CHEW PO SCH (08:19)
[2022-04-13] MEDS: carvediloL 6.25 MG TABLET PO SCH ×2 (08:19→16:03)
[2022-04-14] MEDS: Levothyroxine 25 MCG TABLET PO SCH (06:23)
[2022-04-14 06:54] VITALS: TEMP 98.1
[2022-04-14] MEDS: Cholecalciferol (D-3) 1,000 UNIT (25MCG) TABLET PO SCH (08:35)
[2022-04-14] MEDS: carvediloL 6.25 MG TABLET PO SCH (08:35)
[2022-04-14] MEDS: allopurinoL 100 MG TABLET PO SCH (08:35)
[2022-04-14] MEDS: Insulin LISPRO 300 UNITS/3 ML VIAL SUBQ SCH ×2 (08:36→11:06)
[2022-04-14] MEDS: Aspirin 81 MG TAB.CHEW PO SCH (08:36)
[2022-04-14 10:23] LABS: Calcium 8.6 mg/dL (8.6-10.3); Potassium 3.6 mEq/L (3.5-5.1)
[2022-04-14 10:54] VITALS: BP 139/62; PULSE 68; O2SAT 95
[2022-04-14 11:29] LABS: Adenovirus Not Detected (Not Detect); Bordetella Pertussis Not Detected (Not Detect); Chlamydophila pneumoniae Not Detected (Not Detect); Coronavirus 229E Not Detected (Not Detect); Coronavirus HKU1 Not Detected (Not Detect); Coronavirus NL63 Not Detected (Not Detect); Coronavirus OC43 Not Detected (Not Detect); Human Metapneumovirus Not Detected (Not Detect); Human Rhinovirus/Enterovirus Not Detected (Not Detect); Influenza A Subtype 2009 H1 Not Detected (Not Detect); Influenza B Not Detected (Not Detect); Mycoplasma pneumoniae Not Detected (Not Detect); Parainfluenza Virus 1 Not Detected (Not Detect); Parainfluenza Virus 2 Not Detected (Not Detect); Parainfluenza Virus 3 Not Detected (Not Detect); Parainfluenza Virus 4 Not Detected (Not Detect); Respiratory Syncytial Virus Not Detected (Not Detect); SARS-CoV-2 Not Detected (Not Detect)
== END 2022-04-14 14:22 | disposition critical access hospital (66) | DRG 246 ==
LOC: EMEROOARM 13:11 → ICNU 15:34 → 2NNU 04-11 18:18
PROVIDERS: ADMIT Internal Medicine Interventional Cardiology; ATTEND Internal Medicine Interventional Cardiology

== ENCOUNTER 2022-04-20 11:41 | Inpatient (IN) ==
[2022-04-20] MEDS ORDERED: Ondansetron 4 MG/2 ML VIAL IVP PRN (15:07)
[2022-04-20] MEDS ORDERED: Furosemide 20 MG/2 ML VIAL IVP ONE (15:09)
[2022-04-20] MEDS ORDERED: *HR* Heparin 5,000 UNIT/ML VIAL IVP PRN ×2 (15:11)
[2022-04-20] MEDS: Heparin 25,000UNIT/250ML 1/2NS 25,000 UNIT/250 ML IV.SOLN IVC SCH (17:04)
[2022-04-21 06:08] LABS: Hematocrit 33.2 % (35.3-44.9); Hemoglobin 10.6 g/dL (11.5-15.4); Mean Corpuscular HGB Conc 31.9 g/dL (31.6-35.5); Mean Corpuscular Hemoglobin 27.2 pg (28.0-33.3); Mean Corpuscular Volume 85.1 fL (83.0-100.0); Mean Platelet Volume 9.1 fL (9.4-12.4); Platelet Count 184 K/mcL (140-400); Red Cell Distribution Width 14.1 % (11.5-14.5); White Blood Count 12.6 K/mcL (4.3-11.1)
[2022-04-21 06:29] LABS: Calcium 8.6 mg/dL (8.6-10.3); Potassium 3.4 mEq/L (3.5-5.1)
[2022-04-21 06:31] LABS: Lymphocytes # 2.3 K/mcL (0.6-4.6); Monocytes # 1.3 K/mcL (0.0-1.3); Neutrophils # 9.1 K/mcL (1.6-8.9); Platelet Estimate Normal (Normal); Reactive Lymphocytes Present (Not Present)
[2022-04-21] MEDS: amLODIPine 5 MG TABLET PO SCH (08:28)
[2022-04-21] MEDS: Aspirin 81 MG TAB.CHEW PO SCH (08:28)
[2022-04-21] MEDS: Ascorbic Acid 500 MG TABLET PO SCH (08:28)
[2022-04-21] MEDS: allopurinoL 100 MG TABLET PO SCH (08:28)
[2022-04-21] MEDS: carvediloL 6.25 MG TABLET PO SCH ×2 (08:29→17:05)
[2022-04-21] MEDS ORDERED: Furosemide 20 MG TABLET PO SCH (09:00)
[2022-04-21] MEDS: Budesonide/Formoterol 160/4.5 1 PUFF INH IH SCH ×2 (10:35→20:26)
[2022-04-21] MEDS: Tiotropium 10 INH DOSE IH SCH (10:35)
[2022-04-21] MEDS: *HR* Acetylcysteine 20% 600 MG/3 ML ORAL SYRINGE PO SCH ×2 (11:45→20:24)
[2022-04-21] MEDS: Heparin 25,000UNIT/250ML 1/2NS 25,000 UNIT/250 ML IV.SOLN IVC SCH (19:17)
[2022-04-22 02:03] LABS: Hemoglobin 10.2 g/dL (11.5-15.4); Mean Corpuscular HGB Conc 31.9 g/dL (31.6-35.5); Mean Corpuscular Volume 84.7 fL (83.0-100.0); Mean Platelet Volume 9.1 fL (9.4-12.4); Platelet Count 193 K/mcL (140-400); Red Blood Count 3.78 M/mcL (3.82-4.97); Red Cell Distribution Width 13.9 % (11.5-14.5); White Blood Count 12.3 K/mcL (4.3-11.1)
[2022-04-22 04:36] LABS: Calcium 8.6 mg/dL (8.6-10.3)
[2022-04-22] MEDS: Levothyroxine 25 MCG TABLET PO SCH (05:22)
[2022-04-22] MEDS: Tiotropium 10 INH DOSE IH SCH (07:38)
[2022-04-22] MEDS: Budesonide/Formoterol 160/4.5 1 PUFF INH IH SCH ×2 (07:39→19:58)
[2022-04-22] MEDS: Ascorbic Acid 500 MG TABLET PO SCH (10:04)
[2022-04-22] MEDS: allopurinoL 100 MG TABLET PO SCH (10:05)
[2022-04-22] MEDS: carvediloL 6.25 MG TABLET PO SCH ×2 (10:06→17:32)
[2022-04-22] MEDS: amLODIPine 5 MG TABLET PO SCH (10:07)
[2022-04-22] MEDS ORDERED: Furosemide 40 MG/4 ML VIAL IVP ONE (10:20)
[2022-04-22] MEDS: Aspirin 81 MG TAB.CHEW PO SCH (10:27)
[2022-04-22] MEDS: *HR* Acetylcysteine 20% 600 MG/3 ML ORAL SYRINGE PO SCH ×2 (10:27→20:00)
[2022-04-22] MEDS ORDERED: Nitroglycerin 1,000 MCG/5 ML VIAL IV ONE (14:25)
[2022-04-22] MEDS ORDERED: 0.9 % Sodium Chloride 2,000 ML ONE (14:25)
[2022-04-22] MEDS ORDERED: Heparin 1,000 UNITS/500 mL 500 ML ONE ×2 (14:25→15:47)
[2022-04-22] MEDS ORDERED: Iopamidol - 370 200 ML INFUS..BTL ONE (14:25)
[2022-04-22] MEDS ORDERED: *HR* Heparin 10,000 UNIT/10 ML VIAL ONE (14:25)
[2022-04-22] MEDS ORDERED: *HR* FentaNYL (PF) 100 MCG/2 ML VIAL ONE (14:33)
[2022-04-22] MEDS ORDERED: *HR* Midazolam HCl 2 MG/2 ML VIAL ONE (14:33)
[2022-04-22] MEDS: 0.9 % Sodium Chloride 250 ML IVC SCH ×2 (17:40→22:42)
[2022-04-22] MEDS: Heparin 25,000UNIT/250ML 1/2NS 25,000 UNIT/250 ML IV.SOLN IVC SCH (19:04)
[2022-04-23 05:21] LABS: Calcium 8.4 mg/dL (8.6-10.3); Magnesium 1.6 mg/dL (1.6-2.6); Potassium 3.9 mEq/L (3.5-5.1)
[2022-04-23] MEDS: Levothyroxine 25 MCG TABLET PO SCH (05:55)
[2022-04-23 06:36] LABS: Hematocrit 31.3 % (35.3-44.9); Hemoglobin 9.9 g/dL (11.5-15.4); Mean Corpuscular HGB Conc 31.6 g/dL (31.6-35.5); Mean Corpuscular Volume 85.3 fL (83.0-100.0); Mean Platelet Volume 9.3 fL (9.4-12.4); Platelet Count 189 K/mcL (140-400); Red Blood Count 3.67 M/mcL (3.82-4.97); Red Cell Distribution Width 13.9 % (11.5-14.5); White Blood Count 10.2 K/mcL (4.3-11.1)
[2022-04-23] MEDS: Budesonide/Formoterol 160/4.5 1 PUFF INH IH SCH ×2 (07:55→20:18)
[2022-04-23] MEDS: Tiotropium 10 INH DOSE IH SCH (07:55)
[2022-04-23] MEDS: Ascorbic Acid 500 MG TABLET PO SCH (10:00)
[2022-04-23] MEDS: allopurinoL 100 MG TABLET PO SCH (10:00)
[2022-04-23] MEDS: Aspirin 81 MG TAB.CHEW PO SCH (10:01)
[2022-04-23] MEDS: amLODIPine 5 MG TABLET PO SCH (10:01)
[2022-04-23] MEDS: *HR* Acetylcysteine 20% 600 MG/3 ML ORAL SYRINGE PO SCH ×2 (10:02→19:57)
[2022-04-23] MEDS: carvediloL 6.25 MG TABLET PO SCH ×2 (10:10→17:30)
[2022-04-23] MEDS: *HR* Heparin 5,000 UNIT/ML VIAL SQ SCH (17:30)
[2022-04-23] MEDS ORDERED: Furosemide 20 MG TABLET PO SCH (18:15)
[2022-04-24 05:42] LABS: Hematocrit 30.5 % (35.3-44.9); Hemoglobin 9.7 g/dL (11.5-15.4); Mean Corpuscular HGB Conc 31.8 g/dL (31.6-35.5); Mean Corpuscular Hemoglobin 27.2 pg (28.0-33.3); Mean Corpuscular Volume 85.7 fL (83.0-100.0); Mean Platelet Volume 9.2 fL (9.4-12.4); Platelet Count 205 K/mcL (140-400); Red Blood Count 3.56 M/mcL (3.82-4.97); Red Cell Distribution Width 13.9 % (11.5-14.5); White Blood Count 10.4 K/mcL (4.3-11.1)
[2022-04-24] MEDS: Levothyroxine 25 MCG TABLET PO SCH (05:54)
[2022-04-24] MEDS: *HR* Heparin 5,000 UNIT/ML VIAL SQ SCH ×2 (05:54→15:52)
[2022-04-24 06:02] LABS: Calcium 8.7 mg/dL (8.6-10.3); Magnesium 1.5 mg/dL (1.6-2.6); Potassium 3.7 mEq/L (3.5-5.1)
[2022-04-24] MEDS: Budesonide/Formoterol 160/4.5 1 PUFF INH IH SCH ×2 (08:08→20:14)
[2022-04-24] MEDS: Tiotropium 10 INH DOSE IH SCH (08:09)
[2022-04-24] MEDS: amLODIPine 5 MG TABLET PO SCH (10:38)
[2022-04-24] MEDS: allopurinoL 100 MG TABLET PO SCH (10:38)
[2022-04-24] MEDS: Aspirin 81 MG TAB.CHEW PO SCH (10:38)
[2022-04-24] MEDS: Ascorbic Acid 500 MG TABLET PO SCH (10:38)
[2022-04-24] MEDS: carvediloL 6.25 MG TABLET PO SCH ×2 (10:45→15:52)
[2022-04-24 13:18] LABS: Influenza A PCR Negative (Negative); Influenza B PCR Negative (Negative); Resp. Syncytial Virus PCR Negative (Negative); SARS-CoV-2 by PCR (In House) Negative (Negative)
[2022-04-24] MEDS ORDERED: Flu Vac QV 22-23 (6MOS UP)/PF 0.5 ML SYRINGE IM ONE (14:43)
[2022-04-24] MEDS ORDERED: hydrOXYzine pamoate 25 MG CAPSULE PO ONE (15:50)
[2022-04-24] MEDS ORDERED: Albumin 25% 25gram/100mL 25 GM/100 ML IV.SOLN IVPB ONE (17:28)
[2022-04-24] MEDS ORDERED: Furosemide 40 MG/4 ML VIAL IVP ONE (19:00)
[2022-04-24 20:35] LABS: ABG Base Excess -2 mEq/L (-2 to 3); ABG HCO3 22 mEq/L (21-27); ABG Oxygen Saturation 96 % (95-98); ABG PCO2 35 mmHg (35-45); ABG PH 7.41 pH Units (7.32-7.45); ABG PO2 78 mmHg (85-104); ABG TCO2 23 mEq/L (20-26)
[2022-04-25 03:02] LABS: Hematocrit 31.2 % (35.3-44.9); Hemoglobin 9.9 g/dL (11.5-15.4); Mean Corpuscular HGB Conc 31.7 g/dL (31.6-35.5); Mean Corpuscular Hemoglobin 27.1 pg (28.0-33.3); Mean Corpuscular Volume 85.5 fL (83.0-100.0); Mean Platelet Volume 8.9 fL (9.4-12.4); Platelet Count 198 K/mcL (140-400); Red Blood Count 3.65 M/mcL (3.82-4.97); White Blood Count 12.6 K/mcL (4.3-11.1)
[2022-04-25 03:23] LABS: Potassium 3.8 mEq/L (3.5-5.1)
[2022-04-25] MEDS: *HR* Heparin 5,000 UNIT/ML VIAL SQ SCH ×2 (07:28→16:55)
[2022-04-25] MEDS: Levothyroxine 25 MCG TABLET PO SCH (07:28)
[2022-04-25] MEDS: Tiotropium 10 INH DOSE IH SCH (07:32)
[2022-04-25] MEDS: Budesonide/Formoterol 160/4.5 1 PUFF INH IH SCH ×2 (07:32→19:52)
[2022-04-25] MEDS: allopurinoL 100 MG TABLET PO SCH (09:06)
[2022-04-25] MEDS: Ascorbic Acid 500 MG TABLET PO SCH (09:06)
[2022-04-25] MEDS: Aspirin 81 MG TAB.CHEW PO SCH (09:06)
[2022-04-25] MEDS: carvediloL 6.25 MG TABLET PO SCH ×2 (09:07→16:52)
[2022-04-25] MEDS: amLODIPine 5 MG TABLET PO SCH (09:07)
[2022-04-25] MEDS ORDERED: methylPREDNISolone 125 MG/2 ML VIAL IVP STA (09:26)
[2022-04-25] MEDS ORDERED: methylPREDNISolone 125 MG/2 ML VIAL IVP ONE (09:26)
[2022-04-25] MEDS ORDERED: *HR* LORazepam 0.5 MG TABLET PO PRN (09:40)
[2022-04-25] MEDS: Ipratropium/Albuterol Neb 3 ML IH SCH ×5 (10:14→23:05)
[2022-04-25] MEDS ORDERED: Furosemide 40 MG TABLET PO ONE (15:00)
[2022-04-25] MEDS ORDERED: *HR* Dextrose 50 % in Water (Syg) 50 ML SYRINGE IVP PRN (16:40)
[2022-04-25] MEDS ORDERED: D5% in Water 1,000 ML IVC PRN (16:40)
[2022-04-25] MEDS ORDERED: Dextrose Gel 15 GM/37.5 ML TUBE PO PRN ×2 (16:40)
[2022-04-25] MEDS: MethylPREDNISolone 40 MG/ML VIAL IVP SCH (16:53)
[2022-04-25] MEDS: Insulin LISPRO 300 UNITS/3 ML VIAL SUBQ SCH ×2 (16:58→21:21)
[2022-04-26] MEDS: MethylPREDNISolone 40 MG/ML VIAL IVP SCH (00:33)
[2022-04-26] MEDS: Ipratropium/Albuterol Neb 3 ML IH SCH ×5 (03:40→21:21)
[2022-04-26] MEDS: Levothyroxine 25 MCG TABLET PO SCH (05:03)
[2022-04-26] MEDS: *HR* Heparin 5,000 UNIT/ML VIAL SQ SCH ×2 (05:03→16:58)
[2022-04-26] MEDS: allopurinoL 100 MG TABLET PO SCH (07:38)
[2022-04-26] MEDS: Ascorbic Acid 500 MG TABLET PO SCH (07:38)
[2022-04-26] MEDS: carvediloL 6.25 MG TABLET PO SCH ×2 (07:38→16:54)
[2022-04-26] MEDS: Aspirin 81 MG TAB.CHEW PO SCH (07:38)
[2022-04-26] MEDS: Insulin LISPRO 300 UNITS/3 ML VIAL SUBQ SCH ×4 (07:39→21:47)
[2022-04-26] MEDS: predniSONE 20 MG TABLET PO SCH (07:39)
[2022-04-26] MEDS: amLODIPine 5 MG TABLET PO SCH (07:39)
[2022-04-26] MEDS: Budesonide/Formoterol 160/4.5 1 PUFF INH IH SCH ×2 (08:02→21:21)
[2022-04-26] MEDS: Tiotropium 10 INH DOSE IH SCH (08:03)
[2022-04-26 08:28] LABS: Hematocrit 31.8 % (35.3-44.9); Hemoglobin 10.2 g/dL (11.5-15.4); Mean Corpuscular HGB Conc 32.1 g/dL (31.6-35.5); Mean Corpuscular Hemoglobin 27.4 pg (28.0-33.3); Mean Corpuscular Volume 85.5 fL (83.0-100.0); Mean Platelet Volume 8.8 fL (9.4-12.4); Platelet Count 201 K/mcL (140-400); Red Blood Count 3.72 M/mcL (3.82-4.97); Red Cell Distribution Width 14.1 % (11.5-14.5)
[2022-04-26 08:52] LABS: Calcium 9.3 mg/dL (8.6-10.3); Magnesium 1.9 mg/dL (1.6-2.6); Potassium 3.8 mEq/L (3.5-5.1)
[2022-04-26] MEDS ORDERED: Piperacillin/Tazobactam 3.375 GM in 0.9 % Sodium Chloride Mini Bag 100 ML IVPB SCH (21:03)
[2022-04-26] MEDS: Menthol 1 EACH LOZENGE PO PRN (21:47)
[2022-04-27] MEDS: Ipratropium/Albuterol Neb 3 ML IH SCH ×4 (04:35→20:34)
[2022-04-27 05:05] LABS: Hematocrit 30.8 % (35.3-44.9); Mean Corpuscular HGB Conc 32.5 g/dL (31.6-35.5); Mean Corpuscular Hemoglobin 27.7 pg (28.0-33.3); Mean Corpuscular Volume 85.3 fL (83.0-100.0); Mean Platelet Volume 9.1 fL (9.4-12.4); Platelet Count 213 K/mcL (140-400); Red Blood Count 3.61 M/mcL (3.82-4.97); Red Cell Distribution Width 14.3 % (11.5-14.5); White Blood Count 19.4 K/mcL (4.3-11.1)
[2022-04-27 05:25] LABS: Calcium 9.1 mg/dL (8.6-10.3); Potassium 3.8 mEq/L (3.5-5.1)
[2022-04-27 06:04] LABS: Lymphocytes # 1.9 K/mcL (0.6-4.6); Monocytes # 2.3 K/mcL (0.0-1.3); Neutrophils # 15.1 K/mcL (1.6-8.9); Platelet Estimate Normal (Normal)
[2022-04-27] MEDS: *HR* Heparin 5,000 UNIT/ML VIAL SQ SCH ×2 (06:44→17:17)
[2022-04-27] MEDS: Levothyroxine 25 MCG TABLET PO SCH (06:44)
[2022-04-27] MEDS: carvediloL 6.25 MG TABLET PO SCH ×2 (07:35→17:16)
[2022-04-27] MEDS: Insulin LISPRO 300 UNITS/3 ML VIAL SUBQ SCH ×4 (07:51→21:40)
[2022-04-27] MEDS ORDERED: Piperacillin/Tazobactam 3.375 GM in 0.9 % Sodium Chloride Mini Bag 100 ML IVPB SCH ×2 (08:00→20:00)
[2022-04-27] MEDS: predniSONE 20 MG TABLET PO SCH (08:30)
[2022-04-27] MEDS: Aspirin 81 MG TAB.CHEW PO SCH (08:30)
[2022-04-27] MEDS: amLODIPine 5 MG TABLET PO SCH (08:30)
[2022-04-27] MEDS: allopurinoL 100 MG TABLET PO SCH (08:31)
[2022-04-27] MEDS: Ascorbic Acid 500 MG TABLET PO SCH (08:31)
[2022-04-27] MEDS: Menthol 1 EACH LOZENGE PO PRN (09:34)
[2022-04-27] MEDS ORDERED: polyethylene glycoL 3350 17 GM POWD.PACK PO PRN (10:27)
[2022-04-27] MEDS: Tiotropium 10 INH DOSE IH SCH (10:35)
[2022-04-27] MEDS: Budesonide/Formoterol 160/4.5 1 PUFF INH IH SCH ×2 (10:36→20:34)
[2022-04-27] MEDS: Sennosides/Docusate Sodium TABLET PO SCH ×2 (12:06→21:38)
[2022-04-27 16:39] LABS: Adenovirus Not Detected (Not Detect); Bordetella Pertussis Not Detected (Not Detect); Chlamydophila pneumoniae Not Detected (Not Detect); Coronavirus 229E Not Detected (Not Detect); Coronavirus HKU1 Not Detected (Not Detect); Coronavirus NL63 Not Detected (Not Detect); Coronavirus OC43 Not Detected (Not Detect); Human Metapneumovirus Not Detected (Not Detect); Human Rhinovirus/Enterovirus Not Detected (Not Detect); Influenza A Subtype 2009 H1 Not Detected (Not Detect); Influenza B Not Detected (Not Detect); Mycoplasma pneumoniae Not Detected (Not Detect); Parainfluenza Virus 1 Not Detected (Not Detect); Parainfluenza Virus 2 Not Detected (Not Detect); Parainfluenza Virus 3 Not Detected (Not Detect); Parainfluenza Virus 4 Not Detected (Not Detect); Respiratory Syncytial Virus Not Detected (Not Detect); SARS-CoV-2 Not Detected (Not Detect)
[2022-04-27] MEDS: Albumin 25% 25gram/100mL 25 GM/100 ML IV.SOLN IVC SCH ×2 (21:38→23:17)
[2022-04-27] MEDS: Doxycycline 100 MG CAPSULE PO SCH (21:39)
[2022-04-27] MEDS: Melatonin 3 MG TABLET PO SCH (21:39)
[2022-04-28] MEDS ORDERED: Morphine Sulfate 2 MG/ML SYRINGE IVP ONE (01:20)
[2022-04-28 02:08] LABS: ABG Base Excess -2 mEq/L (-2 to 3); ABG HCO3 25 mEq/L (21-27); ABG Oxygen Saturation 90 % (95-98); ABG PCO2 51 mmHg (35-45); ABG PH 7.29 pH Units (7.32-7.45); ABG PO2 65 mmHg (85-104); ABG TCO2 26 mEq/L (20-26)
[2022-04-28] MEDS ORDERED: *HR* LORazepam 2 MG/ML VIAL IVP ONE (02:12)
[2022-04-28 03:12] LABS: Basophils % 0.2 %; Eosinophils % 0.1 %; Hematocrit 32.1 % (35.3-44.9); Lymphocytes # 1.4 K/mcL (0.6-4.6); Lymphocytes % 7.2 %; Mean Corpuscular HGB Conc 31.2 g/dL (31.6-35.5); Mean Corpuscular Volume 86.8 fL (83.0-100.0); Mean Platelet Volume 9.3 fL (9.4-12.4); Monocytes # 1.1 K/mcL (0.0-1.3); Monocytes % 5.7 %; Neutrophils # 15.5 K/mcL (1.6-8.9); Platelet Count 247 K/mcL (140-400); Red Cell Distribution Width 14.4 % (11.5-14.5); Segmented Neutrophils % 78.8 %; White Blood Count 19.7 K/mcL (4.3-11.1)
[2022-04-28 03:32] LABS: Calcium 9.8 mg/dL (8.6-10.3); Potassium 4.1 mEq/L (3.5-5.1)
[2022-04-28 03:44] LABS: Platelet Estimate Normal (Normal)
[2022-04-28 03:45] LABS: Microcytosis Present (Not Present)
[2022-04-28] MEDS: Ipratropium/Albuterol Neb 3 ML IH SCH ×4 (03:56→23:03)
[2022-04-28] MEDS: *HR* Heparin 5,000 UNIT/ML VIAL SQ SCH ×2 (07:10→15:30)
[2022-04-28] MEDS ORDERED: cefTRIAXone 1,000 MG in 0.9 % Sodium Chloride 10 ML IVP SCH ×2 (09:00→16:00)
[2022-04-28] MEDS: Ascorbic Acid 500 MG TABLET PO SCH (09:04)
[2022-04-28] MEDS: Sennosides/Docusate Sodium TABLET PO SCH ×2 (09:04→20:35)
[2022-04-28] MEDS: amLODIPine 5 MG TABLET PO SCH (09:04)
[2022-04-28] MEDS: Aspirin 81 MG TAB.CHEW PO SCH (09:04)
[2022-04-28] MEDS: Doxycycline 100 MG CAPSULE PO SCH (09:04)
[2022-04-28] MEDS: Levothyroxine 25 MCG TABLET PO SCH (09:04)
[2022-04-28] MEDS: predniSONE 20 MG TABLET PO SCH (09:04)
[2022-04-28] MEDS: allopurinoL 100 MG TABLET PO SCH (09:05)
[2022-04-28] MEDS: carvediloL 6.25 MG TABLET PO SCH ×2 (09:05→16:29)
[2022-04-28] MEDS: Insulin LISPRO 300 UNITS/3 ML VIAL SUBQ SCH ×3 (09:07→16:32)
[2022-04-28] MEDS: Budesonide/Formoterol 160/4.5 1 PUFF INH IH SCH ×2 (09:37→23:02)
[2022-04-28] MEDS ORDERED: Furosemide 40 MG/4 ML VIAL IVP ONE (09:42)
[2022-04-28] MEDS ORDERED: methylPREDNISolone 125 MG/2 ML VIAL IVP ONE (09:42)
[2022-04-28] MEDS: *HR* LORazepam Oral Conc 2 MG/ML SL PRN (16:30)
[2022-04-28] MEDS: Melatonin 3 MG TABLET PO SCH (20:35)
[2022-04-29] MEDS: *HR* LORazepam Oral Conc 2 MG/ML SL PRN (03:39)
[2022-04-29] MEDS: Ipratropium/Albuterol Neb 3 ML IH SCH ×4 (03:56→20:29)
[2022-04-29] MEDS: Levothyroxine 25 MCG TABLET PO SCH (06:20)
[2022-04-29] MEDS: amLODIPine 5 MG TABLET PO SCH (09:34)
[2022-04-29] MEDS: allopurinoL 100 MG TABLET PO SCH (09:34)
[2022-04-29] MEDS: Sennosides/Docusate Sodium TABLET PO SCH ×2 (09:34→19:49)
[2022-04-29] MEDS: carvediloL 6.25 MG TABLET PO SCH ×2 (09:34→16:35)
[2022-04-29] MEDS: predniSONE 20 MG TABLET PO SCH (09:35)
[2022-04-29] MEDS: Aspirin 81 MG TAB.CHEW PO SCH (09:35)
[2022-04-29] MEDS: Budesonide/Formoterol 160/4.5 1 PUFF INH IH SCH ×2 (09:53→20:29)
[2022-04-29] MEDS: Furosemide 20 MG TABLET PO SCH (16:36)
[2022-04-29] MEDS: Melatonin 3 MG TABLET PO SCH (19:49)
[2022-04-30] MEDS: Ipratropium/Albuterol Neb 3 ML IH SCH ×4 (03:47→22:44)
[2022-04-30] MEDS: Levothyroxine 25 MCG TABLET PO SCH (05:52)
[2022-04-30] MEDS: predniSONE 20 MG TABLET PO SCH (09:42)
[2022-04-30] MEDS: Furosemide 20 MG TABLET PO SCH (09:42)
[2022-04-30] MEDS: Aspirin 81 MG TAB.CHEW PO SCH (09:42)
[2022-04-30] MEDS: amLODIPine 5 MG TABLET PO SCH (09:43)
[2022-04-30] MEDS: allopurinoL 100 MG TABLET PO SCH (09:43)
[2022-04-30] MEDS: Sennosides/Docusate Sodium TABLET PO SCH ×2 (09:44→21:33)
[2022-04-30] MEDS: carvediloL 6.25 MG TABLET PO SCH ×2 (09:50→17:20)
[2022-04-30] MEDS: Budesonide/Formoterol 160/4.5 1 PUFF INH IH SCH ×2 (10:15→22:44)
[2022-04-30] MEDS ORDERED: *HR* LORazepam Oral Conc 2 MG/ML SL PRN (10:24)
[2022-04-30] MEDS: *HR* LORazepam Oral Conc 2 MG/ML SL SCH ×2 (12:29→17:20)
[2022-04-30] MEDS: Melatonin 3 MG TABLET PO SCH (21:33)
[2022-05-01] MEDS: *HR* LORazepam Oral Conc 2 MG/ML SL SCH ×2 (00:14→05:56)
[2022-05-01] MEDS: Ipratropium/Albuterol Neb 3 ML IH SCH ×2 (03:49→09:32)
[2022-05-01] MEDS: Levothyroxine 25 MCG TABLET PO SCH (05:55)
[2022-05-01 07:42] VITALS: BP 108/74; PULSE 105; TEMP 97.1
[2022-05-01] MEDS: carvediloL 6.25 MG TABLET PO SCH (08:04)
[2022-05-01] MEDS: Sennosides/Docusate Sodium TABLET PO SCH (08:05)
[2022-05-01] MEDS: allopurinoL 100 MG TABLET PO SCH (08:06)
[2022-05-01] MEDS: Furosemide 20 MG TABLET PO SCH (08:06)
[2022-05-01] MEDS: amLODIPine 5 MG TABLET PO SCH (08:06)
[2022-05-01] MEDS: Aspirin 81 MG TAB.CHEW PO SCH (08:08)
[2022-05-01] MEDS: predniSONE 20 MG TABLET PO SCH (08:08)
[2022-05-01] MEDS: Budesonide/Formoterol 160/4.5 1 PUFF INH IH SCH (09:33)
[2022-05-01 10:36] VITALS: O2SAT 92
== END 2022-05-01 13:13 | disposition hospice, home (50) | DRG 246 ==
LOC: 2ANU → SUATTDRO 04-21 13:04 → 2ANU 04-28 17:34
PROVIDERS: ADMIT Hospitalist; ATTEND Internal Medicine